=== PATIENT | female | born 1955 | race Caucasian/White ===

== ENCOUNTER 2016-10-30 20:10 | Observation (INO) | payer BC, MEDICARE ==
--- NOTE | ~2016-10-30 | OP ---
Record Of Operation [facility] [address] [place]. [address] NAME: SANJIV HOYT : 57 STATUS : ADM Brittany PAT#: [id number] AGE: 61 ADM/REG DATE : 10/30/16 MR#: [id number] REPORT SERV DATE: 10/31/16 DICTATED BY: CESAR DOTY DATE: 10/31/16 REPORT STATUS : Draft TRANSCRIBED BY: MODL DATE: 10/31/16 DATE OF PROCEDURE: 10/30/2016 PREOPERATIVE DIAGNOSIS: Nery 2A acute left lower extremity ischemia. POSTOPERATIVE DIAGNOSIS: Nery 2A acute left lower extremity ischemia. PROCEDURE: 1. Aortogram with left lower extremity runoff. 2. Percutaneous thromboembolectomy of the left SFA, popliteal artery, peroneal artery with penumbra CAT 6 thrombectomy device. 3. Percutaneous angioplasty of the left SFA and popliteal arteries with a 7 mm balloon. 4. Secondary percutaneous thromboembolectomy of the left anterior tibial, tibioperoneal trunk, and posterior tibial arteries with penumbra CAT 6 thrombectomy device. SURGEON: Cesar Doty M.D. OIL HEATERMAN: None. ANESTHESIA: MAC plus local. INDICATIONS: The patient is a 61-year-old female, who presented with a three-week history of left lower extremity pain that was sudden in onset. She clearly has an ischemic leg and it looks like this is likely a thromboembolic complication. Thus, she was consented for intervention. DESCRIPTION OF PROCEDURE: After informed consent was obtained, the patient was taken to the operating room and placed in the supine position on the operating table. Monitored anesthesia was administered. The patient's groins and left lower extremity were prepped and draped in usual sterile fashion. Ultrasound-guided access was obtained of the right common femoral artery using a micropuncture technique. An oblique angiogram confirmed puncture within the anterior common femoral artery. I passed a wire up to the aorta and placed a 5- American sheath. The left catheter was placed into the perirenal aorta. An aortogram demonstrated no hemodynamically significant aortoiliac disease. I selected out the left external iliac artery. I obtained sequential imaging down the left lower extremity. There was no hemodynamically significant left common femoral, deep femoral, or superficial femoral artery disease. The more distal SFA, however, was occluded. There was reconstitution of the below-knee popliteal artery. It looked like there was primarily anterior tibial runoff on, although the proximal tibioperoneal trunk was 8. The posterior tibial artery and peroneal arteries were not well visualized. I had systemically heparinized. I placed a 7- American 65 cm sheath up and over the aortic bifurcation into the left SFA. I used a wire and catheter to traverse the left SFA and popliteal occlusions. There was clearly a well formed thrombus there. I placed a catheter into the left popliteal artery and obtained imaging that demonstrated aforementioned anterior tibial and tibioperoneal trunk runoff. More distal flow was not visualized in the peroneal and posterior tibial arteries. I then performed a penumbra thromboembolectomy of the left SFA and popliteal arteries using a CAT 6 Record Of Operation [address] [place]. [address] NAME: SANJIV HOYT : 57 STATUS : ADM Brittany PAT#: [id number] AGE: 61 ADM/REG DATE : 10/30/16 MR#: [id number] REPORT SERV DATE: 10/31/16 DICTATED BY: CESAR DOTY DATE: 10/31/16 REPORT STATUS : Draft TRANSCRIBED BY: JOSE MARIA DATE: 10/31/16 thrombectomy device. Imaging obtained afterwards showed improvement, but there were 2 areas of stenosis in the SFA and popliteal arteries. It looked like there may be some thrombus there, but there was underlined narrowing. I angioplastied these regions with a 7 mm balloon. There was marked improvement with this, with still a little residual thrombus. There was embolization down into the anterior tibial artery, as well as the tibioperoneal trunk. I passed the penumbra CAT 6 device down into the anterior tibial artery, as well as the tibioperoneal trunk and peroneal arteries, and performed a thrombectomy. Sequential imaging showed improvement. There was, however, still persistent outflow obstruction in the peroneal artery. I passed a catheter down into the peroneal artery and obtained imaging from this point, as more distal flow was not well visualized. The peroneal artery was patent distally. I then performed a repeat thrombectomy of the peroneal artery. Seeing as how I could not find the origin of the posterior tibial artery, I performed ultrasound- guided access of the left posterior tibial artery at the level of the ankle. The ultrasound image documented on the chart. I passed a wire centrally. I placed the introducer of the micropuncture sheath and obtained an angiogram. This is a retrograde angiogram demonstrated and posterior tibial artery was patent along most of the course. I was able to get a wire into the popliteal artery, posterior tibial approach. I was able to navigate the upper casting device over this wire into the posterior tibial artery. It turned out that it was a long tibioperoneal trunk that extended from the origin of the anterior tibial artery to the distal leg. At this point, the peroneal artery actually originated and the posterior tibial artery originated. The whole time that I thought that I was performing a peroneal thrombectomy, I was actually performing a thrombectomy at the tibioperoneal trunk. The posterior tibial artery was clearly still thrombosed. I passed penumbra casting device into the posterior tibial artery and then later into the peroneal artery. While there was improvement, there was still some residual coughing. I injected 4 mg of alteplase into the popliteal artery initially. I allowed this to sit for a while and then injected another 4 mg of alteplase into the tibioperoneal trunk. I allowed this to sit for a while and I injected nitroglycerin to relieve the spasm. Imaging obtained afterwards showed pretty good result. There was flow down into the foot via the anterior tibial artery and down the anterior tibial pulse. There was more sluggish flow through the tibioperoneal trunk through the posterior tibial arteries. Having said that, or more directed jet showed that there was flow through the plantar arch back through the dorsalis pedis artery. Seeing as how we get such marked improvement. I obtained additional imaging of the SFA and popliteal artery given that there was no hemodynamically significant residual stenosis. Once again, there was a trace amount of thrombus or irregularity left in the left SFA and popliteal artery, but this was not hemodynamically significant or a couple of different views. Some of the alteplase that I injected was in the popliteal artery and SFA, and this looked like it was clearing this up. Thus, I withdrew my wire, catheter, and did use to mobilize, close the arteriotomy. Manual pressure was used for hemostasis in the left posterior tibial artery. The patient tolerated the procedure well without any intraprocedural complications noted. LABOR OPERATOR/MODL Cesar Doty M.D. Record Of Operation [facility] [address] [place] [address] NAME: SANJIV HOYT : 57 STATUS : ADM Brittany PAT#: [id number] AGE: 61 ADM/REG DATE : 10/30/16 MR#: [id number] REPORT SERV DATE: 10/31/16 DICTATED BY: CESAR DOTY DATE: 10/31/16 REPORT STATUS : Draft TRANSCRIBED BY: JOSE MARIA DATE: 10/31/16 / [id number] CC: Cesar Doty M.D.
--- NOTE | ~2016-10-30 | HP ---
History And Physical [facility] [id number] [place]. [address] NAME: SANJIV HOYT : 57 STATUS : REG ER PAT#: [id number] AGE: 61 ADM/REG DATE : 10/30/16 MR#: [id number] REPORT SERV DATE: 10/30/16 DICTATED BY: CESAR FOREMAN DATE: 10/30/16 REPORT STATUS : Draft TRANSCRIBED BY: JOSE MARIA DATE: 10/30/16 DATE OF ADMISSION: 10/30/2016 REASON FOR ADMISSION: Left lower extremity ischemia. BRIEF HISTORY: The patient is a 61-year-old female with a past medical history significant for spina bifida, degenerative joint disease, and osteoarthritis who has had chronic back issues. She was in her usual state of health until about three weeks ago. She developed sudden onset of left calf and leg pain. The pain has persisted and has become intolerable. She thought that she could just work through this. She came in for evaluation and treatment and was noted to have an abnormal pulse examination. Duplex confirmed the popliteal artery occlusion. I was consulted for evaluation and treatment. The patient denies any other complaints. Specifically, she denies any stroke-like symptoms. She denies any other weakness, numbness, tingling, or thick or slurred speech. She denies any chest pain or shortness of breath. She denies any palpitations. PAST MEDICAL HISTORY: As above. Hypoglycemia. PAST SURGICAL HISTORY: Includes cholecystectomy, hysterectomy, two knee surgeries, salivary gland resections, left ankle surgery, tonsillectomy, polypectomy, and cataract surgery. SOCIAL HISTORY: She smokes. She denies any alcohol or drug use. FAMILY HISTORY: Significant for thick blood with several family members having blood clots. Ulcers also run in her family. ALLERGIES: LISTED TORADOL, WHICH SIMPLY MAKES HER SICK. MEDICATIONS: Her medications are documented on the chart and were reviewed. Of note, she is on hormone replacement. REVIEW OF SYSTEMS: A complete review of systems was performed and is negative with the exception of the aforementioned findings. PHYSICAL EXAMINATION: VITAL SIGNS: Documented on the chart and were reviewed. GENERAL: The patient is awake, alert, oriented, and in no apparent distress. HEENT/NECK: Her head and neck examination is benign without any carotid bruits. HEART: Regular rate and rhythm. LUNGS: Clear. ABDOMEN: Soft, nontender, and nondistended with a nonaneurysmal aorta. EXTREMITIES: She has a normal complement of upper extremity pulses without any significant edema or ischemic ulcerations. She has palpable femoral, popliteal, and pedal pulses on the right. She has palpable femoral and popliteal pulses on the left. Her left foot is cyanotic. She does have signals. She has good movement and her calf is soft. History And Physical [address] [place]. [address] NAME: SANJIV HOYT : 57 STATUS : REG ER PAT#: [id number] AGE: 61 ADM/REG DATE : 10/30/16 MR#: [id number] REPORT SERV DATE: 10/30/16 DICTATED BY: CSEAR FOREMAN DATE: 10/30/16 REPORT STATUS : Draft TRANSCRIBED BY: JOSE MARIA DATE: 10/30/16 LABORATORY DATA: Her laboratory investigations are fairly unremarkable. Her duplex shows a popliteal artery occlusion on the left side. ASSESSMENT AND PLAN: It looks like this lady has had what is likely a thromboembolic event to her left lower extremity about three weeks ago. This is a late presentation and she does have a significant risk of losing her leg. I have asked that the ER doctor start her on anticoagulation. I talked to her about the risks, benefits, and alternatives of angiography with intervention with possible thrombectomy and thrombolysis. We also talked about open thrombectomy. I introduced fasciotomy. She understands that. We are going to do everything that we can to save her leg. The late presentation indicates a poor prognosis. The patient and family are understanding and are in the room. They heard most if not all the discussion. We are going to take her to the operating room now. GEORGINA/JOSE MARIA Cesar Foreman M.D. / [id number]
[2016-10-30 16:28] LABS: BASOPHILS 1.5 %; BASOPHILS ABSOLUTE 0.12 10/3/uL (0.0-0.16); EOSINOPHILS 2.2 %; EOSINOPHILS ABSOLUTE 0.18 10/3/uL (0.0-0.53); ER CBC TAT 0 Hrs 08 Mins; HEMATOCRIT 48.2 % (36.0-48.0); HEMOGLOBIN 16.7 g/dL (12.0-16.0); IMMATURE GRANULOCYTES 0.1 %; IMMATURE GRANULOCYTES ABSOLUTE 0.01 10/3/uL (0.0-0.11); LYMPHOCYTES 32.8 %; LYMPHOCYTES ABSOLUTE 2.63 10/3/uL (0.67-4.30); MANUAL DIFF NO %; MEAN CORPUS HGB CONC 34.6 g/dL (32.0-36.0); MEAN CORPUSCULAR HEMOGLOB 32.1 pg (26.0-34.0); MEAN CORPUSCULAR VOLUME 92.5 fL (80-100); MEAN PLATELET VOLUME 10.7 fL (9.2-13.0); MONOCYTES 6.9 %; MONOCYTES ABSOLUTE 0.55 10/3/uL (0.21-1.20); NEUTROPHILS 56.5 %; NEUTROPHILS ABSOLUTE 4.53 10/3/uL (2.02-8.40); PLATELET COUNT 307 10/3/uL (150-400); RBC DISTRIBUTION WIDTH 14.5 % (12.0-16.0); RED CELL COUNT 5.21 10/6/uL (4.0-5.6)
[2016-10-30 16:39] LABS: INTERNATIONAL NORMAL RATI 1.1 UNITS (-); PARTIAL THROMBO TIME 31.7 SEC (22.5-37.2); PROTIME (NOT ORD) 13.6 SEC (12.0-14.5)
[2016-10-30 16:40] LABS: BUN (BLOOD UREA NITROGEN) 8 MG/DL (6-23); CHLORIDE, SERUM 107 MMOL/L (96-112); CO2 (CARBON DIOXIDE) 29 MMOL/L (24-34); CREATININE 1.22 MG/DL (0.55-1.02); GFR AFRICAN AMERICAN 56 ML/MIN (>=60); GFR NON AFRICAN AMERICAN 48 ML/MIN (>=60); GLUCOSE, SERUM 76 MG/DL (60-99); POTASSIUM, SERUM 3.7 MMOL/L (3.5-5.3); SODIUM, SERUM 144 MMOL/L (135-148)
[~2016-10-30 20:10] MED LIST: BIOTIN5 MG PO; ESTRATEST PO; KLONO2 PO; LAXATIVE OTC PO; NORCO1 TA2 PO; POTASSIUM GLUCO99 MG PO; PR25 PO; PRILO PO; VENTOLIN HFA INH
[2016-10-31 05:06] LABS: BASOPHILS 0.2 %; BASOPHILS ABSOLUTE 0.02 10/3/uL (0.0-0.16); EOSINOPHILS 0.1 %; EOSINOPHILS ABSOLUTE 0.01 10/3/uL (0.0-0.53); HEMATOCRIT 43.9 % (36.0-48.0); HEMOGLOBIN 14.8 g/dL (12.0-16.0); IMMATURE GRANULOCYTES 0.2 %; IMMATURE GRANULOCYTES ABSOLUTE 0.03 10/3/uL (0.0-0.11); LYMPHOCYTES 5.9 %; LYMPHOCYTES ABSOLUTE 0.78 10/3/uL (0.67-4.30); MEAN CORPUS HGB CONC 33.7 g/dL (32.0-36.0); MEAN CORPUSCULAR HEMOGLOB 31.7 pg (26.0-34.0); MEAN PLATELET VOLUME 10.4 fL (9.2-13.0); MONOCYTES 1.5 %; NEUTROPHILS 92.1 %; NEUTROPHILS ABSOLUTE 12.17 10/3/uL (2.02-8.40); PLATELET COUNT 262 10/3/uL (150-400); RBC DISTRIBUTION WIDTH 14.7 % (12.0-16.0); RED CELL COUNT 4.67 10/6/uL (4.0-5.6)
[2016-10-31 05:07] LABS: MANUAL DIFF NO %; WHITE BLOOD CELLS 13.2 10/3/uL (4.5-10.5)
[2016-10-31 05:12] LABS: INTERNATIONAL NORMAL RATI 1.1 UNITS (-); PROTIME (NOT ORD) 14.2 SEC (12.0-14.5)
[2016-10-31 05:15] LABS: PARTIAL THROMBO TIME > 150.0 SEC (22.5-37.2)
[2016-10-31 05:19] LABS: BUN (BLOOD UREA NITROGEN) 9 MG/DL (6-23); CALCIUM, SERUM 8.6 MG/DL (8.5-10.4); CHLORIDE, SERUM 104 MMOL/L (96-112); CO2 (CARBON DIOXIDE) 27 MMOL/L (24-34); CREATININE 1.25 MG/DL (0.55-1.02); GFR AFRICAN AMERICAN 54 ML/MIN (>=60); GFR NON AFRICAN AMERICAN 47 ML/MIN (>=60); PHOSPHORUS, SERUM 3.2 MG/DL (2.5-4.5); POTASSIUM, SERUM 4.1 MMOL/L (3.5-5.3); SODIUM, SERUM 140 MMOL/L (135-148)
[2016-10-31 05:20] LABS: GLUCOSE, SERUM 153 MG/DL (60-99)
[2016-10-31 11:37] LABS: HEMATOCRIT 41.3 % (36.0-48.0); HEMOGLOBIN 13.9 g/dL (12.0-16.0)
[2016-10-31] MEDS ORDERED: LIPITOR40 PO (12:32)
[2016-10-31] MEDS ORDERED: PCET PO (12:33)
[2016-10-31] MEDS ORDERED: XARELTO20 MG PO (12:33)
[2016-10-31 16:02] LABS: HEMATOCRIT 41.3 % (36.0-48.0); HEMOGLOBIN 13.8 g/dL (12.0-16.0)
== END 2016-10-31 18:03 | disposition home or self-care (01) ==
LOC: SDC 20:10 → 2SO 23:59
PROVIDERS: Emergency Medicine; Surgery
DX: I74.3 Embolism and thrombosis of arteries of the lower extremities (principal); I99.8 Other disorder of circulatory system; F17.200 Nicotine dependence, unspecified, uncomplicated; J45.909 Unspecified asthma, uncomplicated; Q05.9 Spina bifida, unspecified
CPT/HCPCS: 36140; 37184; 37185; 37224; 75625; 75710; 75774; 80048; 83735; 84100; 85014; 85018; 85025; 85610; 85730; 88304; 93926; 96374; 96376; 99291; A9270-GY; C1725; C1750; C1760; C1769; C1887; C1894; G0378; J0690; J1170; J2250; J2370; J2405; J2997; J3010; Q9966